=== PATIENT | male | born 1975 | race American Indian/Alaskan Native ===

== ENCOUNTER 2019-02-05 08:53 | Emergency (ER) | payer SELFPAY ==
--- NOTE | 2019-02-05 09:33 | Emergency Department Report ---
ED Male HPI - General Chief complaint: Urogenital-Male Stated complaint: GRION PAIN Time Seen by Provider: 02/05/19 09:11 Source: patient Mode of arrival: Ambulatory Limitations: No Limitations - History of Present Illness Initial comments: 44 yo male sex with new partner 1 wk ago condom broke + dysuria after urinary stream complete MD Complaint: dysuria, groin pain (r) -: Gradual, week(s) (1) Location: penis, right inguinal region Radiation: none Severity: mild Quality: burning Consistency: intermittent Improves with: none Worsens with: urination new sexual partner (1 night stand with someone from [employer] 1 week ago, condom broke) dysuria. denies: discharge, swelling, mass, rash, urinary retention, blood in urine, fever, nausea/vomiting - Related Data Previous Rx's Medication Instructions Recorded Last Taken Type Doxycycline Monohydrate 100 mg PO BID #13 capsule 02/05/19 Unknown Rx [Doxycycline Monohydrate CAP] metroNIDAZOLE [Flagyl] 2,000 mg PO ONCE 1 Days tab 02/05/19 Unknown Rx Allergies Allergy/AdvReac Type Severity Reaction Status Date / Time azithromycin [From Zithromax] Allergy Itching Verified 02/05/19 10:32 ED Review of Systems ROS: Stated complaint: GRION PAIN Other details as noted in HPI Comment: All other systems reviewed and negative ED Past Medical Hx - Past Medical History Previous Medical History?: No - Surgical History Past Surgical History?: No - Social History Smoking Status: Never Smoker Substance Use Type: Alcohol - Medications Home Medications: Home Medications Medication Instructions Recorded Confirmed Last Taken Type Doxycycline Monohydrate 100 mg PO BID #13 capsule 02/05/19 Unknown Rx [Doxycycline Monohydrate CAP] metroNIDAZOLE [Flagyl] 2,000 mg PO ONCE 1 Days tab 02/05/19 Unknown Rx ED Physical Exam - General Limitations: No Limitations General appearance: alert, in no apparent distress - Head Head exam: Present: atraumatic - Eye Eye exam: Present: normal appearance - ENT ENT exam: Present: normal exam - Neck Neck exam: Present: normal inspection - Respiratory Respiratory exam: Present: normal lung sounds bilaterally - Cardiovascular Cardiovascular Exam: Present: regular rate, normal rhythm - GI/Abdominal GI/Abdominal exam: Present: soft, distended. Absent: tenderness, guarding, rebound - exam: Present: normal inspection. Absent: testicular tenderness, scrotal swelling External exam: Present: normal external exam - Extremities Exam Extremities exam: Present: normal inspection, full ROM - Back Exam Back exam: Present: normal inspection, full ROM - Neurological Exam Neurological exam: Present: alert, oriented X3, CN II-XII intact. Absent: motor sensory deficit - Psychiatric Psychiatric exam: Present: normal affect - Skin Skin exam: Present: warm, dry, intact. Absent: rash ED Course Vital Signs 02/05/19 08:56 Temperature 97.8 F Pulse Rate 64 Respiratory 18 Rate Blood Pressure 133/86 O2 Sat by Pulse 99 Oximetry ED Medical Decision Making - Medical Decision Making ua neg, gc/chl pending tx for g/c, chlamydia ?allergic to azithro prescribed doxy and flagyl rocephin given in ed hiv testing as outpt rec - Differential Diagnosis std, urethritis, uti, worried well Critical Care Time: No Critical care attestation.: If time is entered above; I have spent that time in minutes in the direct care of this critically ill patient, excluding procedure time. ED Disposition Clinical Impression: Urethritis, Unprotected sex Disposition: - TO HOME OR SELFCARE Is pt being admited?: No Does the pt Need Aspirin: No Condition: Stable Instructions: Sexually Transmitted Diseases (ED) Additional Instructions: Return if symptoms worsen as indicated on discharge papers. You received treatment for gonorrhea, chlamydia, and trichinosis. Your confirmation testing is pending and takes 2-3 days to result. Prescriptions: Doxycycline Monohydrate [Doxycycline Monohydrate CAP] 100 mg PO BID #13 capsule metroNIDAZOLE [Flagyl] 2,000 mg PO ONCE 1 Days tab Referrals: PRIMARY MD CARLENE [Primary Care Provider] - 3-5 Days [facility] [Outside] - 3-5 Days [facility] [Provider Group] - 3-5 Days ASHUTOSH MURPHY MD [Staff Physician] - 3-5 Days Forms: STI Treatment and Prevention Time of Disposition: 10:42
[2019-02-05 09:43] LABS: Bilirubin,Urine NEG (Negative); Blood,Urine NEG (Negative); Color,Urine Straw (Yellow); Mucus,Urine FEW /HPF; Protein,Urine <15 mg/dL mg/dL (Negative); Urobilinogen,Urine < 2.0 mg/dL (<2.0); WBC,Urine < 1.0 /HPF (0.0-6.0)
[2019-02-05] MEDS ORDERED: ZITHROMAX PO ONE (10:06)
[2019-02-05] MEDS ORDERED: ROCEPHIN IM ONE (10:06)
[2019-02-05] MEDS ORDERED: XYLOCAINE 1% MPF 5 mL INFILTRATI ONE (10:06)
[2019-02-05] MEDS ORDERED: VIBRAMYCIN PO ONE (10:29)
[2019-02-05 10:54] VITALS: BP 130/81
== END 2019-02-05 10:53 | disposition home or self-care (01) ==
LOC: ED 08:53
DX: N34.2 Other urethritis (principal); Z88.1 Allergy status to other antibiotic agents; Z79.899 Other long term (current) drug therapy
CPT/HCPCS: 81001; 87591; 96372; 99283; J0696